=== PATIENT | female | born 1995 | race Caucasian/White ===

== ENCOUNTER 2019-07-20 13:45 | Emergency (ER) | payer OTHER ==
[2019-07-20 13:52] VITALS: BP 125/69
[2019-07-20] MEDS ORDERED: ONDANSETRON HCL INJ/PF 4 MG/2 ML SDV IV ONE ×2 (14:31→16:37)
[2019-07-20] MEDS ORDERED: NORMAL SALINE 1000 ML 1,000 ML IV ONE (14:32)
--- NOTE | 2019-07-20 14:40 | ER Document Report ---
ED Medical Screen (RME) - General Chief Complaint: Abdominal Pain Stated Complaint: VAGINAL BLEEDING, ABDOMINAL PAIN Time Seen by Provider: 07/20/19 14:01 Notes: Patient is a 23-year-old female who presents the emergency department with a chief complaint of vaginal bleeding. Her bleeding started this morning. She states that she has had some thick dark clots. She states that her pain is in her mid lower abdomen. She did have some associated nausea and vomiting this morning she attempted to get 800 mg ibuprofen, but ended up vomiting that up. She has history of ruptured ovarian cyst in the past. Patient states that her last menstrual cycle was June 12. She is currently taking vitamins with iron due to low iron levels. She also takes Zyrtec as needed. - Related Data Allergies/Adverse Reactions: No Known Allergies Allergy (Verified 07/20/19 13:50) Review of Systems - Review of Systems Notes: REVIEW OF SYSTEMS: CONSTITUTIONAL : Denies recent illness. Denies recent unintentional weight loss. Denies fever, chills, or sweats. EENT: Denies eye, ear, throat, or mouth pain, discharge, or symptoms. Denies nasal or sinus congestion. CARDIOVASCULAR: Denies chest pain. RESPIRATORY: Denies shortness of breath, cough, congestion, difficulty breathing, or wheezing. GASTROINTESTINAL: See HPI GENITOURINARY: Denies difficulty urinating, burning, blood in urine, urgency or frequency. FEMALE GENITOURINARY: See HPI MUSCULOSKELETAL: Denies neck and back pain. Denies joint pain or swelling. SKIN: Denies rash, itchiness, or lesions HEMATOLOGIC : Denies easy bruising or bleeding. LYMPHATIC: Denies swollen, painful, enlarged glands. NEUROLOGICAL: Denies no numbness or tingling denies weakness. Denies headache. Denies altered mental status. Denies alteration in speech. PSYCHIATRIC: Denies stress, anxiety, alteration in sleep patterns, or depression. All other systems reviewed and negative. Physical Exam - Vital signs Vitals: Temp Pulse Resp BP Pulse Ox 98.4 F 76 18 125/69 98 07/20/19 13:51 07/20/19 13:51 07/20/19 13:51 07/20/19 13:51 07/20/19 13:51 - Notes Notes: PHYSICAL EXAMINATION: GENERAL: Appears well, healthy, well-nourished, no acute distress. HEAD: Normocephalic, atraumatic. EYES: PERRL, conjunctiva normal, all extraocular movements intact, sclera nonicteric ENT: Dry mucous membranes. NECK: Supple, no noticeable swelling, redness, rash. Normal range of motion. LUNGS: Equal breath sounds bilaterally and clear to auscultation. No wheezes rales or rhonchi. CARDIOVASCULAR: S1-S2, regular rate, regular rhythm. Radial pulses 2+, normal. ABDOMEN: Normoactive bowel sounds. Soft, mildly tender mid lower abdomen, no g uarding, no rebound tenderness, and no masses palpated. EXTREMITIES: Normal strength and range of motion, no pitting or edema. No cyanosis. NEUROLOGICAL: Moves all extremities upon command. Strength 5/5 in all extremities. PSYCH: Normal mood, normal affect. SKIN: Warm, dry. No rash, lesions, ulcerations noted. Normal skin turgor. Course - Re-evaluation Re-evalutation: 07/20/19 17:44 Patient's ultrasound was normal. There is no torsion and there was good blood flow to both ovaries. I suspect the patient is having increased pain and bleeding due to her starting her menstrual cycle. Patient's labs are negative for any . Hematology and chemistries are stable. She is asking if there is anything to help her eat and I suggested to take vitamin B6, as she states that she feels nauseous every time she finishes about half of her food. Advised her [place] She is also advised to take ibuprofen to help with her cramping. I have a very low suspicion for appendicitis, bowel obstruction, tubo-ovarian torsion, or any life-threatening etiology at this time. At this time the patient is safe for discharge. Follow-up precautions were given. Verbal discharge instructions were given to the patient. They verbalized understanding. They are stable for discharge. - Vital Signs Vital signs: Temp Pulse Resp BP Pulse Ox 98.4 F 76 18 125/69 98 07/20/19 13:51 07/20/19 13:51 07/20/19 13:51 07/20/19 13:51 07/20/19 13:51 - Laboratory Result Diagrams: 07/20/19 14:15 07/20/19 15:14 Laboratory results interpreted by me: 07/20/19 07/20/19 07/20/19 14:15 14:31 15:14 Hgb 11.7 L Hct 34.3 L Total Bilirubin 1.6 H Total Protein 6.1 L Urine Protein >=500 H Urine Glucose (UA) 50 H Urine Ketones TRACE H Urine Blood LARGE H Doctor's Discharge - Discharge Clinical Impression: Vaginal bleeding Condition: Stable Disposition: HOME, SELF-CARE Additional Instructions: You were seen today in the emergency department for increased vaginal bleeding. Your ultrasound was normal and your labs show that you were dehydrated. You received fluids here in the emergency department. Please follow-up with primary care provider in regards to this visit. You can take vitamin B6 [id number] to help with nausea. You are also being sent home with Zofran, medication for nausea. You take 1-2 tablet every 4-6 hours as needed. Forms: Return to Work
[2019-07-20 15:07] LABS: BILIRUBIN,URINE NEGATIVE (NEGATIVE); GLUCOSE, URINE 50 mg/dL (NEGATIVE); KETONES,URINE TRACE mg/dL (NEGATIVE); LEUKOCYTE ESTERASE,URINE NEGATIVE (NEGATIVE); NITRITE,URINE NEGATIVE (NEGATIVE); PROTEIN,URINE >=500 mg/dL (NEGATIVE); URINE SPECIFIC GRAVITY 1.025; UROBILINOGEN,URINE NEGATIVE mg/dL (<2.0)
[2019-07-20 15:09] LABS: APPEARANCE,URINE CLOUDY; COLOR,URINE RED
[2019-07-20 15:43] LABS: ABSOLUTE LYMPHOCYTES (AUTO) 1.5 10^3/uL (0.5-4.7); ABSOLUTE MONOCYTES (AUTO) 0.6 10^3/uL (0.1-1.4); ABSOLUTE NEUT (AUTO) 6.1 10^3/uL (1.7-8.2); BASOPHILS % (AUTO) 0.6 % (0-2); EOSINOPHILS % (AUTO) 0.6 % (0-6); HEMATOCRIT 34.3 % (36.0-47.0); HEMOGLOBIN 11.7 g/dL (12.0-15.5); LYMPHOCYTES % (AUTO) 18.3 % (13-45); MEAN CORPUSCULAR HEMOGLOBIN 29.8 pg (27.0-33.4); MEAN CORPUSCULAR HGB CONC 34.2 g/dL (32.0-36.0); MEAN CORPUSCULAR VOLUME 87 fl (80-97); PLATELET COUNT 193 10^3/uL (150-450); RED BLOOD COUNT 3.93 10^6/uL (3.72-5.28); RED CELL DISTRIBUTION WIDTH 12.8 % (11.5-14.0); SEGMENTED NEUTROPHILS % (AUTO) 73.5 % (42-78); TOTAL CELLS COUNTED % (AUTO) 100 %; WHITE BLOOD COUNT 8.3 10^3/uL (4.0-10.5)
[2019-07-20 15:52] LABS: ALBUMIN 3.8 g/dL (3.5-5.0); ALKALINE PHOSPHATASE 71 U/L (38-126); ANION GAP 8 (5-19); ASPARTATE AMINO TRANSFERASE 28 U/L (14-36); BILIRUBIN,DIRECT 0.2 mg/dL (0.0-0.4); BILIRUBIN,TOTAL 1.6 mg/dL (0.2-1.3); BLOOD UREA NITROGEN 12 mg/dL (7-20); CALCIUM 9.4 mg/dL (8.4-10.2); CARBON DIOXIDE 26 mmol/L (22-30); CHLORIDE 103 mmol/L (98-107); GLUCOSE 83 mg/dL (75-110); POTASSIUM 3.7 mmol/L (3.6-5.0); TOTAL PROTEIN 6.1 g/dL (6.3-8.2)
[2019-07-20] MEDS ORDERED: MORPHINE SULFATE 10 MG/ML INJ IV ONE (16:37)
[2019-07-20] MEDS ORDERED: ACETAMINOPHEN 325 MG TABLET PO ONE (17:17)
--- NOTE | 2019-07-20 17:34 | RADIOLOGY REPORT (SQ) ---
EXAM DESCRIPTION: U/S NON OB PEL TV W/DOPPLER COMPLETED DATE/TIME: 07/20/2019 5:03 pm REASON FOR STUDY: vaginal bleeding COMPARISON: None. TECHNIQUE: Dynamic and static grayscale images acquired of the pelvis via transvaginal approach and recorded on PACS. Additional selected color Doppler and spectral images recorded. LIMITATIONS: None. FINDINGS: UTERUS: Contour normal. No mass. ENDOMETRIAL STRIPE: No focal or generalized thickening. No masses. CERVIX: 3.1 cm. No nabothian cysts. RIGHT OVARY AND DOPPLER: Normal size. No worrisome masses. Normal arterial vascular flow without evid ence for torsion. LEFT OVARY AND DOPPLER: Normal size. No worrisome masses. Normal arterial vascular flow without evide nce for torsion. FREE FLUID: None noted. OTHER: No other significant finding. MEASUREMENTS: UTERUS: 7.6 x 4.5 x 3.3 cm. ENDOMETRIAL STRIPE: 7 mm. RIGHT OVARY: 3.4 x 3.7 x 2 cm. LEFT OVARY: 3.1 x 2 x 2.2 cm. IMPRESSION: NORMAL TRANSVAGINAL PELVIC ULTRASOUND. TECHNICAL DOCUMENTATION: JOB ID: [id number]- All Rights Reserved Rev-04/18 Reading location - IP/workstation name: [email or web address]
[2019-07-20] MEDS ORDERED: ONDANSETRON ODT 4 MG TAB (6 TAB/ER DISP) PO PRN (17:49)
== END 2019-07-20 17:59 | disposition home or self-care (01) ==
LOC: ER 13:45
DX: N93.8 Other specified abnormal uterine and vaginal bleeding (principal); R10.30 Lower abdominal pain, unspecified; R11.2 Nausea with vomiting, unspecified
CPT/HCPCS: 36415; 84703; 85025; 80053; 81001; 76830; 93976; J2405; J7030; 96361; 96374; 96376; 99284